=== PATIENT | male | born 1970 | race Caucasian/White ===

== ENCOUNTER 2018-07-29 19:25 | Emergency (ER) | payer MEDICARE, MEDICAID ==
[~2018-07-29] VITALS: Ht 190.5 cm; Wt 113.4 kg
--- NOTE | 2018-07-29 19:29 | NUR ---
Note abdirashid in EDM - 07/29/18 at 1950 by FEMIRENTENIDA ED Nurse Note: Patient jeni RA 27 c/o nausea, states that he has been feeling nauseous all day but denies any episode of vomit. complains of 6/10 abdominal pain. patient is alert and oriented x4, ambulatory with a steady gait, VSS
--- NOTE | 2018-07-29 19:29 | NUR ---
ED Nurse Note: Patient biba RA 27 c/o hypogylcemia, patient states that he feels like he is having an episode of hypoglycemia, at time of arrival patient's blood sugar is 97, will wait for further orders
[2018-07-29 19:30] VITALS: BP 120/72
--- NOTE | 2018-07-29 19:52 | Emergency Room Report ---
History of Present Illness General Chief Complaint: General Complaint Source: Patient Present Illness HPI 48-year-old male presents to the emergency department complaining of concern for hypoglycemic episode. Patient reports diaphoresis, feeling jittery, and having anxiousness which he states is consistent with previous hypoglycemic symptoms. Patient reports recent acute onset of hypoglycemic episodes where he was hospitalized for further evaluation. Patient ultimately was discharged with prescription for glucose tablets for which he states he has not picked up yet. Reports hx of epilepsy. Patient denies trauma or fall he denies pain, chest pain, shortness of breath, dyspnea, syncope, AMS, fevers or chills. Patient denies history of anxiety he denies drug use and reports intermittent tobacco use as well as intermittent alcohol use. Patient denies cardiac history. Allergies: Coded Allergies: ACETAMINOPHEN (Verified Allergy, Unknown, 07/29/18) FLUOXETINE (Verified Allergy, Unknown, 07/29/18) HYDROCODONE (Verified Allergy, Unknown, 07/29/18) ONDANSETRON (Verified Allergy, Unknown, 07/29/18) PHENYTOIN (Verified Allergy, Unknown, 07/29/18) Patient History Past Medical History: see triage record, seizures Past Surgical History: none Pertinent Family History: none Reviewed Nursing Documentation: PMH: Agreed; PSxH: Agreed Nursing Documentation-PMH Past Medical History: No History, Except For Hx Asthma: Yes - ASTHMA Hx COPD: Yes - COPD Review of Systems All Other Systems: negative except mentioned in HPI Physical Exam Vital Signs Date Time Temp Pulse Resp B/P (MAP) Pulse Ox O2 Delivery O2 Flow Rate FiO2 07/29/18 19:20 98.4 80 16 114/76 98 Room Air Sp02 EP Interpretation: reviewed, normal General Appearance: no apparent distress, alert, GCS 15, non-toxic Head: normocephalic, atraumatic Eyes: bilateral eye normal inspection, bilateral eye PERRL ENT: hearing grossly normal, normal voice Neck: full range of motion Respiratory: chest non-tender, lungs clear, normal breath sounds, no respiratory distress, no wheezing, speaking full sentences Cardiovascular #1: regular rate, rhythm, no edema Musculoskeletal: back normal, gait/station normal, normal range of motion, non- tender Neurologic: alert, oriented x3, responsive, motor strength/tone normal, sensory intact, normal gait, speech normal, grossly normal Psychiatric: judgement/insight normal, anxious Skin: normal color, no rash, warm/dry, well hydrated Medical Decision Making DEEPAK Attestation Dr. Franco is my supervising Physician whom patient management has been discussed with. Homeless Attestation I, The treating provider, Wanda SOTELO, has assessed and agrees that patient is medically stable for discharge to an outpatient disposition. Diagnostic Impression: Primary Impression: Encounter for medical screening examination ER Course 48-year-old male presents to the emergency department complaining of concern for hypoglycemic episode. Patient reports diaphoresis, feeling jittery, and having anxiousness which he states is consistent with previous hypoglycemic symptoms. Patient reports recent acute onset of hypoglycemic episodes where he was hospitalized for further evaluation. Patient ultimately was discharged with prescription for glucose tablets for which he states he has not picked up yet. Reports hx of epilepsy. Patient denies trauma or fall he denies pain, chest pain, shortness of breath, dyspnea, syncope, AMS, fevers or chills. Patient denies history of anxiety he denies drug use and reports intermittent tobacco use as well as intermittent alcohol use. Patient denies cardiac history. Ddx considered but are not limited to anxiety reaction, electrolyte abnormality , hypoglycemia, palpitations/dysrhythmia, PE, Thyroid disorder, Cardiac pathology/MD just to name a few Vital signs: are WNL, pt. is afebrile H&PE are most consistent with normal blood glucose- Pt. NAD, non toxic in appearance. not in respiratory distress. ORDERS: -BMP: Unremarkable - EK NSR no acute ST changes. -UDS: negative ED INTERVENTIONS: -offered pt. ativan to see if this help his symptoms. Pt. declines. -I do not identify an emergent condition at this time. With current presentation , recent full evaluation at [facility], I feel this pt. is stable for close outpatient follow up and conservative treatment. D/w pt. to return promptly to ED with worsening or new symptoms.- Pt. verbalizes' understanding and agreement with proposed treatment plan.proposed treatment plan. DISCHARGE: At this time pt. is stable for d/c to home. Will provide printed patient care instructions, and any necessary prescriptions. Care plan and follow up instructions have been discussed with the patient prior to discharge. Labs Test 07/29/18 20:26 Sodium Level 140 MMOL/L (136-145) Potassium Level 3.6 MMOL/L (3.5-5.1) Chloride Level 104 MMOL/L (98-107) Carbon Dioxide Level 26 MMOL/L (21-32) Anion Gap 10 mmol/L (5-15) Blood Urea Nitrogen 20 mg/dL (7-18) Creatinine 1.1 MG/DL (0.55-1.30) Estimat Glomerular Filtration Rate > 60 mL/min (>60) Glucose Level 103 MG/DL (74-106) Calcium Level 9.8 MG/DL (8.5-10.1) Total Bilirubin 0.4 MG/DL (0.2-1.0) Aspartate Amino Transf (AST/SGOT) 16 U/L (15-37) Alanine Aminotransferase (ALT/SGPT) 22 U/L (12-78) Alkaline Phosphatase 70 U/L (46-116) Total Protein 8.0 G/DL (6.4-8.2) Albumin 4.1 G/DL (3.4-5.0) Globulin 3.9 g/dL Albumin/Globulin Ratio 1.1 (1.0-2.7) Urine Opiates Screen Negative (NEGATIVE) Urine Barbiturates Screen Negative (NEGATIVE) Phencyclidine (PCP) Screen Negative (NEGATIVE) Urine Amphetamines Screen Negative (NEGATIVE) Urine Benzodiazepines Screen Negative (NEGATIVE) Urine Cocaine Screen Negative (NEGATIVE) Urine Marijuana (THC) Screen Negative (NEGATIVE) EKG Diagnostic Results EP Interpretation: Dr. Franco Rate: normal - 78 bpm Rhythm: NSR ST Segments: no acute changes DEEPAK Scribe Text This Interpretation was scribed by DEEPAK Polk. Last Vital Signs Date Time Temp Pulse Resp B/P (MAP) Pulse Ox O2 Delivery O2 Flow Rate FiO2 07/29/18 19:30 98.4 86 16 120/72 98 Room Air Disposition: HOME, SELF-CARE Condition: Stable Scripts Blood-Glucose Meter (BLOOD GLUCOSE METER) 1 Each Each EACH , #1 Prov: Wanda Polk 07/29/18 Patient Instructions: Medical Screening Exam Additional Instructions: Take any previously prescribed medications as directed. Follow up with a Primary Care Provider in 3-5 days, even if your symptoms have resolved. --Please review list of primary care clinics, if you do not already have a primary care provider Return sooner to ED if new symptoms occur, or current symptoms become worse. - Please note that this Emergency Department Report was dictated using [employer] assistant technology software, occasionally this can lead to erroneous entry secondary to interpretation by the dictation equipment. Wanda Polk Jul 29, 2018 19:52
[2018-07-29 20:54] LABS: ANION GAP 10 mmol/L (5-15); BLOOD UREA NITROGEN 20 mg/dL (7-18); CALCIUM 9.8 MG/DL (8.5-10.1); CARBON DIOXIDE 26 MMOL/L (21-32); CHLORIDE 104 MMOL/L (98-107); CREATININE 1.1 MG/DL (0.55-1.30); POTASSIUM 3.6 MMOL/L (3.5-5.1); SODIUM 140 MMOL/L (136-145)
[2018-07-29 20:58] LABS: ALANINE AMINOTRANSFERASE 22 U/L (12-78); ALBUMIN 4.1 G/DL (3.4-5.0); ALBUMIN/GLOBULIN RATIO 1.1 (1.0-2.7); ALKALINE PHOSPHATASE 70 U/L (46-116); ASPARTATE AMINO TRANSFERASE 16 U/L (15-37); BILIRUBIN,TOTAL 0.4 MG/DL (0.2-1.0)
[2018-07-29] MEDS ORDERED: BLOOD GLUCOSE1 EAC1 MC (21:51)
--- NOTE | 2018-07-29 22:06 | NUR ---
ER DISCHARGE NOTE: Patient is cleared to be discharged per ERMD, pt is aox4, on room air, with stable vital signs. pt was given dc and prescription instructions, pt was able to verbalize understanding, pt id band removed without complications. pt is able to ambulate with steady gait. pt took all belongings. Patient i being provided transportation via cab to prefferred destination, cathie was given a presciption of a glucometer,
[2018-07-29 22:07] VITALS: BP 124/75
--- NOTE | 2018-08-01 15:26 | Cardiology Report ---
APPROVED REPORT EKG Measurement Heart [id number] Normal sinus rhythm Possible Anterior infarct, age undetermined Abnormal ECG
== END 2018-07-29 22:00 | disposition home or self-care (01) ==
LOC: EDBD 19:25 → EMR 22:00
DX: R61 Generalized hyperhidrosis (principal); F41.9 Anxiety disorder, unspecified; G40.909 Epilepsy, unspecified, not intractable, without status epilepticus; Z88.6 Allergy status to analgesic agent; Z88.8 Allergy status to other drugs, medicaments and biological substances; J44.9 Chronic obstructive pulmonary disease, unspecified
CPT/HCPCS: 36415; 80053; 80307; 93005; 99283